=== PATIENT | female | born 1940 | race Caucasian/White ===

== ENCOUNTER 2017-02-13 11:10 | Inpatient (IN) | payer OTHER, BC ==
--- NOTE | 2017-02-13 12:46 | CPEKG ---
Heart Rate: 99 RR Interval: 606 P-R Interval: 184 QRSD Interval: 78 QT Interval: 356 QTC Interval: 457 P [place]: 55 QRS [place]: -1 T Wave [place]: 97 EKG Severity - ABNORMAL ECG - EKG Impression: SINUS RHYTHM EKG Impression: ABNORMAL T, CONSIDER ISCHEMIA, LATERAL LEADS Electronically Signed By: Isrrael Cruz 14-Feb-2017 13:16:57
[2017-02-13 13:10] LABS: % IMMATURE GRANULYOCYTES 0.4 % (0.0-1.1); ABSOLUTE IMMATURE GRANULOCYTES 0.04 10^3/uL (0.00-0.10); ADD DIFF? NO; ADD MORPH? NO; ADD SCAN? NO; ATYPICAL LYMPHOCYTE FLAG 0 (0-99); FRAGMENT RBC FLAG 0 (0-99); HEMATOCRIT 43.7 % (38.0-47.0); HEMOGLOBIN 14.6 g/dL (12.6-16.3); LEFT SHIFT FLG 0 (0-99); LIPEMIA HEMOLYSIS FLAG 80 (0-99); MEAN CELL HEMOGLOBIN 30.9 pg (27.9-34.1); MEAN CELL HEMOGLOBIN CONCENTR. 33.4 g/dL (32.4-36.7); MEAN CELL VOLUME 92.6 fL (81.5-99.8); MEAN PLATELET VOLUME 9.1 fL (8.7-11.7); PLATELET CLUMPS FLAG 0 (0-99); PLATELET COUNT 288 10^3/uL (150-400); RED BLOOD CELL COUNT 4.72 10^6/uL (4.18-5.33); RED CELL DISTRIBUTION WIDTH 13.7 % (11.5-15.2)
--- NOTE | 2017-02-13 13:19 | EDPHY ---
H & P Smoking Status: Never smoked Time Seen by Provider: 02/13/17 12:37 HPI/ROS: CHIEF COMPLAINT: Shortness of breath, chest pain HISTORY OF PRESENT ILLNESS: 77-year-old female presents to the emergency department with shortness of breath and chest pain. The patient has felt progressively more short of breath especially over last few days. She states in September 2016 she was diagnosed with RSV the and was hospitalized and was discharged home and use supplemental oxygen for several months. She was weaned off the oxygen about a month ago however she states that she continues to feel short of breath. She has noted especially dyspnea on exertion the last few days. She has had intermittent pain in her chest however none now. No fevers or chills. No upper respiratory symptoms. She denies a cough. Denies abdominal pain. She states that today she was developing headache. She is from [facility] and recently drove back from you [facility]. She states that she was feeling more short of breath while she has been here in [place]. She thinks it is related to the altitude. She does report a cramping sensation in her right calf however this is now resolved. No calf swelling. REVIEW OF SYSTEMS: Constitutional: No fever, no chills. Eyes: No double or blurry vision. ENT: No sore throat. Respiratory: Shortness of breath, no cough. Cardiac: chest pain. Gastrointestinal: No abdominal pain, vomiting or diarrhea. Genitourinary: No dysuria. Musculoskeletal: No neck or back pain. Skin: No rashes. Neurological: No headache. (Bettye Machado) Past Medical/Surgical History: Anxiety (Bettye Machado M) Social History: from [place] (Bettye Machado M) Physical Exam: General Appearance: Alert, no distress. 175/108, 36.6, 92% on room air. Eyes: Pupils equal and round. Extraocular motions are all intact. ENT: Mouth: Mucous membranes moist. Respiratory: No wheezing, rhonchi, or rales, lungs are clear to auscultation. Cardiovascular: Regular rate and rhythm. Gastrointestinal: Abdomen is soft and nontender, no masses, no rebound or guarding, bowel sounds normal. Neurological: Alert and oriented x 3, cranial nerves II through XII grossly intact Skin: Warm and dry, no rashes. Musculoskeletal: Nontender to palpate along the cervical, thoracic or lumbar spine. Neck is supple. Extremities: Full range of motion and no peripheral edema. Psychiatric: Patient is oriented X 3, there is no agitation. (Bettye Machado) Constitutional: Initial Vital Signs Temperature (C) 36.6 C 02/13/17 11:26 Heart Rate 106 H 02/13/17 11:26 Respiratory Rate 16 02/13/17 11:26 Blood Pressure 175/108 H 02/13/17 11:26 O2 Sat (%) 92 02/13/17 11:26 O2 Delivery Mode Nasal Cannula O2 (L/minute) 2 Allergies/Adverse Reactions: erythromycin base Allergy (Verified 02/13/17 11:29) Home Medications: Medication Instructions Recorded ALPRAZolam [Xanax 1 MG (*)] 1 mg PO HS PRN 02/13/17 DULoxetine [Cymbalta 60 MG (*)] 60 mg PO DAILY 02/13/17 Herbals/Supplements -Info Only 1 ea PO DAILY 02/13/17 Omeprazole 20 mg PO DAILY 02/13/17 traZODone [traZODONE 100MG (*)] 100 mg PO HS 02/13/17 Medical Decision Making - Diagnostics Imaging Results: Imaging Impressions Chest X-Ray 02/13/17 12:39 Impression: Probable COPD with linear opacities suggesting atelectasis/scarring. Chest/Thorax CTA 02/13/17 13:12 Impression: 1. Bilateral pulmonary emboli. 2. Prominent nonspecific superior mediastinal lymph nodes. If there is no outside study to document stability of these findings, recommend short-term follow-up CT in 3 months. 3. Scattered bilateral atelectasis. 4. Coronary artery atherosclerosis. 5. Additional findings as above. Findings discussed with Bettye Machado PA-C on 02/13/2017 at 1400 hours. ED Course/Re-evaluation: I discussed the case with Bettye Machado. I am in agreement that this patient has had significant respiratory infection for multiple months and just got off oxygen a month ago and came here to altitude. She is getting progressive shortness of breath. We are doing a chest CT scan to make sure she does not have a pulmonary embolus from her travels or any occult process from her 3 months of respiratory infection related to some sort of viral syndrome and hypoxemia. This patient has a positive pulmonary embolus. We will start appropriate anticoagulation at this time get her admitted the hospital. We have discussed anticoagulation choices and we will go with an oral factor Xa inhibitor at this time. (Calderon Canada) 77-year-old female presents to the emergency department with progressive shortness of breath and chest pain. Laboratory studies reveal normal white blood cell count. Her chemistries were otherwise unremarkable. Because the patient has chest pain as well as feeling progressively short of breath, I ordered CT pulmonary angiogram to rule out pulmonary embolism. CT pulmonary angiogram reveals moderate clot burden. Patient has elevated troponin of 0.0630 likely from pulmonary embolism. Case discussed with Dr. Calderon Canada, secondary supervising physician, who recommended starting the patient on Xarelto. The patient will be admitted to the hospitalist, Dr. Emerald Giang, to telemetry floor. (Bettye Machado) Differential Diagnosis: Shortness of breath including but not limited to pulmonary infectious process, COPD, asthma, pulmonary embolus and congestive heart failure. (Bettye Machado) - Data Points Laboratory Results: Laboratory Results 02/13/17 12:52 02/13/17 12:52 02/13/17 02/13/17 02/13/17 12:52 12:52 12:52 WBC 9.36 10^3/uL 10^3/uL (3.80-9.50) RBC 4.72 10^6/uL 10^6/uL (4.18-5.33) Hgb 14.6 g/dL g/dL (12.6-16.3) POC Hgb Hct 43.7 % % (38.0-47.0) POC Hct MCV 92.6 fL fL (81.5-99.8) MCH 30.9 pg pg (27.9-34.1) MCHC 33.4 g/dL g/dL (32.4-36.7) RDW 13.7 % % (11.5-15.2) Plt Count 288 10^3/uL 10^3/uL (150-400) MPV 9.1 fL fL (8.7-11.7) Neut % (Auto) 67.1 % % (39.3-74.2) Lymph % (Auto) 20.8 % % (15.0-45.0) [place] % (Auto) 10.3 % % (4.5-13.0) Eos % (Auto) 1.2 % % (0.6-7.6) Baso % (Auto) 0.2 % L % (0.3-1.7) Nucleat RBC Rel Count 0.0 % % (0.0-0.2) Absolute Neuts (auto) 6.28 10^3/uL 10^3/uL (1.70-6.50) Absolute Lymphs (auto) 1.95 10^3/uL 10^3/uL (1.00-3.00) Absolute Monos (auto) 0.96 10^3/uL H 10^3/uL (0.30-0.80) Absolute Eos (auto) 0.11 10^3/uL 10^3/uL (0.03-0.40) Absolute Basos (auto) 0.02 10^3/uL 10^3/uL (0.02-0.10) Absolute Nucleated RBC 0.00 10^3/uL 10^3/uL (0-0.01) Immature Gran % 0.4 % % (0.0-1.1) Immature Gran # 0.04 10^3/uL 10^3/uL (0.00-0.10) PT 13.3 SEC SEC (12.0-15.0) INR 1.02 (0.83-1.16) APTT 27.8 SEC SEC (23.0-38.0) Fibrinogen 579 mg/dL H mg/dL (214-456) D-Dimer 3.13 ug/mLFEU H ug/mLFEU (0.00-0.50) POC Sodium Sodium 137 mEq/L mEq/L (134-144) POC Potassium Potassium 4.3 mEq/L mEq/L (3.5-5.2) POC Chloride Chloride 105 mEq/L mEq/L (97-110) Carbon Dioxide 22 mEq/l mEq/l (22-31) Anion Gap 10 mEq/L mEq/L (8-16) POC BUN BUN 14 mg/dL mg/dL (7-23) Creatinine 0.7 mg/dL mg/dL (0.6-1.0) POC Creatinine Estimated GFR > 60 Glucose 104 mg/dL H mg/dL (70-100) POC Glucose Calcium 9.6 mg/dL mg/dL (8.5-10.4) Troponin I 0.063 ng/mL H ng/mL (0-0.034) 02/13/17 12:50 WBC RBC Hgb POC Hgb 16.0 gm/dL gm/dL (12.6-16.3) Hct POC Hct 47 % % (38-47) MCV MCH MCHC RDW Plt Count MPV Neut % (Auto) Lymph % (Auto) [place] % (Auto) Eos % (Auto) Baso % (Auto) Nucleat RBC Rel Count Absolute Neuts (auto) Absolute Lymphs (auto) Absolute Monos (auto) Absolute Eos (auto) Absolute Basos (auto) Absolute Nucleated RBC Immature Gran % Immature Gran # PT INR APTT Fibrinogen D-Dimer POC Sodium 141 mEq/L mEq/L (134-144) Sodium POC Potassium 4.0 mEq/L mEq/L (3.3-5.0) Potassium POC Chloride 102 mEq/L mEq/L (97-110) Chloride Carbon Dioxide Anion Gap POC BUN 14 mg/dL mg/dL (7-23) BUN Creatinine POC Creatinine 0.8 mg/dL mg/dL (0.6-1.0) Estimated GFR Glucose POC Glucose 110 mg/dL H mg/dL (70-100) Calcium Troponin I Medications Given: Discontinued Medications Rivaroxaban (Xarelto) 15 mg PO EDNOW ONE Stop: 02/13/17 14:04 Last Admin: 02/13/17 14:37 Dose: 15 mg Point of Care Test Results: 02/13/17 12:50 POC Sodium 141 POC Potassium 4.0 POC Chloride 102 POC BUN 14 POC Creatinine 0.8 POC Glucose 110 H Departure - Departure Disposition: [facility] Inpatient Acute Clinical Impression: Pulmonary embolism Qualifiers: Pulmonary embolism type: other Chronicity: acute Acute cor pulmonale presence: without acute cor pulmonale Qualified Code(s): I26.99 - Other pulmonary embolism without acute cor pulmonale Chest pain Qualifiers: Chest pain type: unspecified Qualified Code(s): R07.9 - Chest pain, unspecified Condition: Good
[2017-02-13] MEDS ORDERED: IOPAMIDOL (ISOVUE 370) 100 ML BTL IV ONE (13:26)
[2017-02-13 13:34] LABS: ANION GAP 10 mEq/L (8-16); CALCIUM 9.6 mg/dL (8.5-10.4); CARBON DIOXIDE 22 mEq/l (22-31); CHLORIDE 105 mEq/L (97-110); CREATININE 0.7 mg/dL (0.6-1.0); GLOMERULAR FILTRATION RATE > 60; GLUCOSE 104 mg/dL (70-100); POTASSIUM 4.3 mEq/L (3.5-5.2); SODIUM 137 mEq/L (134-144)
[2017-02-13 13:44] LABS: TROPONIN I 0.063 ng/mL (0-0.034)
[2017-02-13] MEDS ORDERED: RIVAROXABAN 15 MG TAB PO ONE (14:03)
[2017-02-13 14:41] LABS: INR 1.02 (0.83-1.16); PROTIME(PATIENT) 13.3 SEC (12.0-15.0)
[2017-02-13 14:42] LABS: APTT 27.8 SEC (23.0-38.0)
[2017-02-13] MEDS ORDERED: ACETAMINOPHEN 325 MG TAB PO PRN (15:17)
[2017-02-13] MEDS ORDERED: ONDANSETRON 4 MG/2 ML VIAL IVP PRN (15:17)
--- NOTE | 2017-02-13 16:08 | GHP ---
[f rep st] HISTORY AND PHYSICAL DATE OF ADMISSION: 02/13/2017 CHIEF COMPLAINT: Shortness of breath. HISTORY: The patient is a 77-year-old female who was diagnosed with RSV bronchitis in October. Chantelle benton never fully recovered, however, and has been persistently short of breath since that time. 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 After arriv ing to [place], her shortness of breath worsened which she attributed to altitude. She went home [facility] for a week and after a couple days, shortness of breath did improve somewhat, at which point she has re-attempted to come back to [place], re-arriving 4 days ago. The shortness of breath has continued to worsen. Has gotten quite severe for the last couple of day s. She denies any cough. There has been no fever. She has developed a new mid chest pain for the last couple of days. This is nonpleuritic and very exertional. She gets the chest pain consistentl y with ambulation and it improves with rest. Since her illness has started, she has also noticed poor balance. She says she walks like she is dr edwards. Worsening hand writing abilities. PAST MEDICAL HISTORY: Negative. PAST SURGICAL HISTORY: 1. Appendectomy with peritonitis as a teenager. 2. Hysterectomy. MEDICATIONS: Please see computer record for full detailed list. ALLERGIES: Erythromycin. SOCIAL HISTORY: No smoking. No alcohol. She lives in [place]. She is planning on staying in [facility] until May. 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 Living in a camper with her . REVIEW OF SYSTEMS: Complete review of systems obtained. Review of systems is negative regarding co nstitutional, HEENT, GI, pulmonary, cardiovascular, , hematology, skin, musculoskeletal, endocrine , psych, except for positives as listed as in HPI. FAMILY HISTORY: Reviewed, noncontributory to current complaint. PHYSICAL EXAMINATION: GENERAL: Well-developed, well-nourished female, in no distress. VITAL SIGNS : Temperature 36.6, pulse 95, blood pressure 147/100, saturating 92% on room air. HEENT: Eyes: N ormal conjunctivae. Pupils react to light. ENT: Normal ears, nose. Hearing intact. Normal teeth . Oropharynx moist. NECK: Trachea midline. No thyromegaly. CHEST: Normal respiratory effort. Cl ear to auscultation bilaterally. CARDIOVASCULAR: Regular rhythm. No murmur. No lower extremity ed jayme. ABDOMEN: Soft, nontender. No hepatosplenomegaly. SKIN: Warm, dry, intact. No rash. MUSCU LOSKELETAL: No cyanosis or clubbing. Strength 5/5 upper and lower extremities. NEUROLOGIC: Crani al nerves intact. Normal sensation to light touch. PSYCH: Alert and oriented x3. Normal affect. Normal judgment. Normal memory. LABORATORY DATA: White count 9.36, hematocrit 43.7, hematocrit 288. Sodium 137, potassium 4.3, chl oride 105, bicarb 22, BUN 14, creatinine 0.7, glucose 104, troponin 0.065. DIAGNOSTIC DATA: Chest x-ray is negative for anything acute. EKG viewed by me. My personal interpretation is normal sinus rhythm, mild ST depression, V5, V6. CT angiogram of the chest shows bilateral pulmonary emboli, mediastinal lymphadenopathy for which 3- month followup is recommended. Positive coronary artery disease by CAT scan. This case was discuss ed with Bettye Machado, emergency room provider. She has staffed the case with Dr. Canada who recom mended starting Xarelto, which has been initiated in the emergency room. ASSESSMENT/PLAN: 1. Moderate bilateral pulmonary embolus. She has been short of breath for months, exacerbated by h er recent living at altitude. Xarelto has been started in the emergency room which I will continue. 2. Troponin elevation. I suspect this is strain due to her pulmonary embolism. We will check an e chocardiogram. She also has a concerning exertional nonpleuritic chest pain history and evidence of coronary artery disease on her CAT scan, so probably should have some risk stratification for coron thom disease at some point as well. Stress testing could be done either as an outpatient versus prio r to discharge, depending on clinical course. 3. Hypertension. She reports borderline blood pressures as an outpatient in the past. They are qu ite elevated here. This will be followed. 4. Mediastinal lymphadenopathy. She needs a followup CT scan in 3 months. ADMISSION STATUS: I will admit to inpatient. She does present with significant pulmonary embolus w ith unsteady gait as well as a borderline living situation. [place], which may warrant a longer period of inpatient observation. CODE STATUS: Full. /[id number]/MODL
[2017-02-13] MEDS: ALPRAZolam 1 MG TAB PO PRN (20:29)
[2017-02-13] MEDS: traZODone 100 MG TAB PO SCH (20:29)
[2017-02-13] MEDS: RIVAROXABAN 15 MG TAB PO SCH (20:30)
[2017-02-14 06:10] LABS: CHOLESTEROL 185 mg/dL (140-220); CHOLESTEROL/HDL RATIO 3.49 RATIO (1.00-4.44); HIGH DENSITY LIPOPROTEIN 53 mg/dL (40-85); LDL/HDL RATIO 2.23 RATIO (1.00-3.22); LOW DENSITY LIPOPROTEIN 118 mg/dL (80-100); NON-HIGH DENSITY LIPOPROTEIN 132 mg/dL (90-129); TRIGLYCERIDE 73 mg/dL (35-135); VERY LOW DENSITY LIPOPROTEINS 14 mg/dL (8-25)
[2017-02-14] MEDS: PANTOPRAZOLE SODIUM 40 MG TAB PO SCH (08:40)
[2017-02-14] MEDS: DULoxetine 60 MG CAP PO SCH (08:40)
[2017-02-14] MEDS: RIVAROXABAN 15 MG TAB PO SCH ×2 (08:41→17:59)
[2017-02-14] MEDS ORDERED: NON-FORMULARY NEW DRUG (Omeprazole [Omeprazole] 20 MG) PO SCH (09:00)
--- NOTE | 2017-02-14 09:42 | CPEKG ---
Heart Rate: 94 RR Interval: 638 P-R Interval: 192 QRSD Interval: 78 QT Interval: 372 QTC Interval: 466 P [place]: 60 QRS [place]: 14 T Wave [place]: 93 EKG Severity - NORMAL ECG - EKG Impression: SINUS RHYTHM Electronically Signed By: Orlin Silva 14-Feb-2017 15:42:46
--- NOTE | 2017-02-14 10:17 | ECHO ---
[id number] + + [address] : : [place] [address] : : [phone] + Adult Echocardiographic Report + -----+ :Name: BRAEDEN Annette Date: 02/14/2017 07:52 AM : : Hospital Admission Number: [id number] Location : 213: :: 1940 Gender: Female Height: 63 in : :Age: 77 yrs Race: WH Weight: 155 lb : :Reason For Study: Bilateral PEs : : BSA: 1.7 meters2 : + -----+ MMode/2D Measurements \T\ Calculations IVSd: 1.5 cm LVIDd: 3.0 cm FS: 31.3 % Ao root diam: LVPWd: 1.1 cm LVIDs: 2.1 cm EDV(Teich): 3.3 cm 36.0 ml LA dimension: ESV(Teich): 2.6 cm 14.1 ml EF(Teich): 60.7 % LVLd ap4: 7.9 cm SV(MOD-sp4): EDV(MOD-sp4): 41.0 ml 55.0 ml LVLs ap4: 5.9 cm ESV(MOD-sp4): 14.0 ml EF(MOD-sp4): 74.5 % Normal Measurement Values: + + :LVIDd (3.5-5.7cm) IVSd (0.6-1.1cm) LVPWd (0.6-1.1cm) Aortic Root (2.0-3.7cm)Left Atrium (1.5-4.0cm): :LV Vol(d) (76-115ml) LV Vol(s) (29-48ml) Ejec Fraction (50-65%)PV Fab (0.6- 1.2m/s) TV Fab (0.4-1.0m/s) : :MV E Fab (0.8-1.0m/s)MV A Fab (0.3-1.0m/s)LVOT Fab (0.7-1.2m/s) Asc Ao Fab ( 0.9-1.8m/s) : + + Doppler Measurements \T\ Calculations Ao V2 max: 149.9 cm/sec TR max fab: 351.8 cm/sec Ao max P.0 mmHg TR max P.5 mmHg RAP systole: 10.0 mmHg RVSP(TR): 59.5 mmHg Left Ventricle The left ventricle is normal in size. There is moderate asymmetric left ventricular hypertrophy. Consider hypertrophic cardiomyopathy. The left ventricle is hyperdynamic. Ejection Fraction = 70-75%. No regional wall motion abnormalities noted. Right Ventricle The right ventricle is borderline dilated. The right ventricular systolic function is mildly reduced. Atria The left atrial size is normal. Right atrial size is normal. Mitral Valve The mitral valve is normal in structure and function. There is no evidence of mitral valve prolapse. There is no mitral valve stenosis. Tricuspid Valve Normal tricuspid valve. There is moderate tricuspid regurgitation. Right ventricular systolic pressure is 60mmHg. There is Doppler evidence for moderate pulmonary hypertension. Aortic Valve The aortic valve is trileaflet. The aortic valve opens well. Moderate calcification of the NCC of the aortic valve. There is no aortic stenosis. There is no aortic insufficiency. Pulmonic Valve The pulmonic valve is normal in structure and function. There is no pulmonic valvular regurgitation. Great Vessels The aortic root is normal size. Pericardium/Pleural Trivial anterior pericardial effusion vs. fat pad. Conclusion A complete two-dimensional transthoracic echocardiogram was performed (2D, M-mode, Doppler and color flow Doppler). There is moderate asymmetric left ventricular hypertrophy. Consider hypertrophic cardiomyopathy The left ventricle is hyperdynamic. Ejection Fraction = 70-75%. No regional wall motion abnormalities RV is borderline dilated with mildly reduced systolic function There is moderate tricuspid regurgitation. There is Doppler evidence for moderate pulmonary hypertension. Right ventricular systolic pressure is 60mmHg. Moderate calcification of the NCC of the aortic valve. No Trivial anterior pericardial effusion vs. fat pad. No prior echo Final Reading Physician: Dr Melba Jay electronically signed on 02/14/2017 10:16 AM Ordering Physician: Emerald Giang Performed By: Pamella Hager, [facility]
[2017-02-14 13:35] LABS: PROTEIN C ACTIVITY 94 % (70 - 150)
[2017-02-14 14:20] LABS: PROTEIN S ACTIVITY 105 % (65 - 160)
--- NOTE | 2017-02-14 14:40 | CPEKG ---
Heart Rate: 94 RR Interval: 638 P-R Interval: 192 QRSD Interval: 82 QT Interval: 372 QTC Interval: 466 P [place]: 46 QRS [place]: 2 T Wave [place]: 88 EKG Severity - NORMAL ECG - EKG Impression: SINUS RHYTHM Electronically Signed By: Orlin Silva 14-Feb-2017 15:42:37
--- NOTE | 2017-02-14 15:15 | HOSPPROG ---
Hospitalist Progress Note Assessment/Plan: 77 yo F with no significant overnight events presenting with sob and hypoxia dx with bilateral PE # acute bilateral PE: moderate volume on personal review of CTA, started on xarelto and will continue for now. Does have evidence of right heart strain on echo and hypoxia and intermediate risk PESI score. Will get dopplers of lower extremities and continue to monitor. # elevated trop: with e/o right heart strain as above, ecg personally reviewed with SR and rate of 90s, and no clear e/o ischemia. Echo without wall motion abnormality. Will need ischemic eval, for now will continue to trend trops and if becomes truly positive will consult cardiology. If remains indeterminate will likely get stress test in am # CP: as above, there is e/o CAD on CT # acute hypoxic respiratory failure: was 77% on RA on admission, continues to require supplemental oxygen # moderate pulm htn: likely acute related to acute bilateral PE # mediastinal LAD: will need f/u CT in 3 months # dispo: IP status, will need > 48 hours stay for eval/mgmt of above > 35 minutes spent in care of this patient, more than half in face to face counseling of patient and her regarding dx and tx plan Subjective: no significant overnight events, she is feeling better, not sob at rest, still with some chest pain unchanged from prior Objective: Vital Signs Temp Pulse Resp BP Pulse Ox 36.6 C 93 23 H 121/78 H 93 02/14/17 11:07 02/14/17 11:07 02/14/17 11:07 02/14/17 11:07 02/14/17 11:07 02/13/17 02/14/17 02/15/17 05:59 05:59 05:59 Intake Total 300 Balance 300 PT 13.3 SEC (12.0-15.0) 02/13/17 12:52 INR 1.02 (0.83-1.16) 02/13/17 12:52 awake alert anicteric op clear rrr distant cta b normal wob soft nt nd no cce warm dry well perfused oriented appropriate ICD10 Worksheet Patient Problems: Problems Problem Status Onset Chest pain Acute Pulmonary embolism Acute
[2017-02-14] MEDS: traZODone 100 MG TAB PO SCH (20:34)
[2017-02-14] MEDS: ALPRAZolam 1 MG TAB PO PRN (20:45)
[2017-02-15 04:40] LABS: % IMMATURE GRANULYOCYTES 0.3 % (0.0-1.1); ABSOLUTE IMMATURE GRANULOCYTES 0.02 10^3/uL (0.00-0.10); ADD DIFF? NO; ADD MORPH? NO; ADD SCAN? NO; ATYPICAL LYMPHOCYTE FLAG 0 (0-99); FRAGMENT RBC FLAG 0 (0-99); HEMATOCRIT 36.3 % (38.0-47.0); HEMOGLOBIN 11.8 g/dL (12.6-16.3); LEFT SHIFT FLG 0 (0-99); LIPEMIA HEMOLYSIS FLAG 80 (0-99); MEAN CELL HEMOGLOBIN 30.5 pg (27.9-34.1); MEAN CELL HEMOGLOBIN CONCENTR. 32.5 g/dL (32.4-36.7); MEAN CELL VOLUME 93.8 fL (81.5-99.8); MEAN PLATELET VOLUME 9.5 fL (8.7-11.7); PLATELET CLUMPS FLAG 30 (0-99); PLATELET COUNT 232 10^3/uL (150-400); RED BLOOD CELL COUNT 3.87 10^6/uL (4.18-5.33); RED CELL DISTRIBUTION WIDTH 13.5 % (11.5-15.2)
[2017-02-15 05:08] LABS: ANION GAP 7 mEq/L (8-16); CARBON DIOXIDE 25 mEq/l (22-31); CHLORIDE 104 mEq/L (97-110); CREATININE 0.7 mg/dL (0.6-1.0); GLOMERULAR FILTRATION RATE > 60; GLUCOSE 97 mg/dL (70-100); POTASSIUM 3.9 mEq/L (3.5-5.2); SODIUM 136 mEq/L (134-144)
[2017-02-15] MEDS: PANTOPRAZOLE SODIUM 40 MG TAB PO SCH (08:55)
[2017-02-15] MEDS: DULoxetine 60 MG CAP PO SCH (08:55)
[2017-02-15] MEDS: RIVAROXABAN 15 MG TAB PO SCH ×2 (08:55→18:21)
[2017-02-15] MEDS ORDERED: ALBUTEROL 3 ML DEYVIAL IH PRN (11:26)
[2017-02-15] MEDS ORDERED: IPRATROPIUM/ALBUTEROL 3 ML DEYVIAL IH PRN (11:26)
[2017-02-15 15:38] LABS: INTERPRETATION See Comments
--- NOTE | 2017-02-15 16:52 | HOSPPROG ---
Hospitalist Progress Note Assessment/Plan: 77 yo F with no significant overnight events presenting with sob and hypoxia dx with bilateral PE # acute bilateral PE: moderate volume on personal review of CTA, started on xarelto. Does have evidence of right heart strain on echo and hypoxia and intermediate risk PESI score. No DVT, pain controlled. # acute hypoxic respiratory failure: was 77% on RA on admission and continues to require 3L to maintain o2 sats in 90s. Repeat cxr showing some atelectasis and has had some intermittent wheeze as well. Continue xarelto, nebs and IS/ ambulation. Suspect she will need to dc with supplemental o2. # elevated trop: with e/o right heart strain as above, ecg personally reviewed with SR and rate of 90s, and no clear e/o ischemia. Echo without wall motion abnormality. Will plan for stress test tomorrow for further evaluation # acute encephalopathy: suspect there is some underlying dementia given cognitive deficits noted in discussion with the patient that is at baseline, however today patient is also more somnolent and intermittently more confused. No focal neuro findings and suspect mild hypoactive delerium. Will continue to monitor. # CP: now resolved and related to acute PE, there is e/o CAD on CT # moderate pulm htn: likely acute related to acute bilateral PE, no lower extremity edema # mediastinal LAD: will need f/u CT in 3 months # dispo: IP status, will need > 48 hours stay for eval/mgmt of above Subjective: no significant overnight events, today patient is more somnolent and intermittently confused, denies ongoing pain, still sob with exertion Objective: Vital Signs Temp Pulse Resp BP Pulse Ox 37.2 C 91 16 137/78 H 91 L 02/15/17 16:00 02/15/17 16:00 02/15/17 16:00 02/15/17 16:00 02/15/17 16:00 Laboratory Results 02/15/17 03:59 02/15/17 03:59 02/14/17 02/15/17 02/16/17 05:59 05:59 05:59 Intake Total 300 750 Balance 300 750 PT 13.3 SEC (12.0-15.0) 02/13/17 12:52 INR 1.02 (0.83-1.16) 02/13/17 12:52 awake alert anicteric op clear rrr distant cta b normal wob soft nt nd no cce warm dry well perfused oriented appropriate - Time Spent With Patient Time Spent with Patient: greater than 35 minutes Time Spent with Patient: Greater than 35 minutes spent on this patients care, greater than 50% of time spent counseling, educating, and coordinating care regarding the above mentioned plan. ICD10 Worksheet Patient Problems: Problems Problem Status Onset Chest pain Acute Pulmonary embolism Acute
[2017-02-15] MEDS: ALPRAZolam 1 MG TAB PO PRN (20:39)
[2017-02-15] MEDS: traZODone 100 MG TAB PO SCH (20:39)
[2017-02-16 04:41] LABS: % IMMATURE GRANULYOCYTES 0.2 % (0.0-1.1); ABSOLUTE IMMATURE GRANULOCYTES 0.01 10^3/uL (0.00-0.10); ADD DIFF? NO; ADD MORPH? NO; ADD SCAN? NO; ATYPICAL LYMPHOCYTE FLAG 20 (0-99); FRAGMENT RBC FLAG 0 (0-99); HEMATOCRIT 38.2 % (38.0-47.0); HEMOGLOBIN 12.5 g/dL (12.6-16.3); LEFT SHIFT FLG 0 (0-99); LIPEMIA HEMOLYSIS FLAG 80 (0-99); MEAN CELL HEMOGLOBIN 30.8 pg (27.9-34.1); MEAN CELL HEMOGLOBIN CONCENTR. 32.7 g/dL (32.4-36.7); MEAN CELL VOLUME 94.1 fL (81.5-99.8); MEAN PLATELET VOLUME 9.8 fL (8.7-11.7); PLATELET CLUMPS FLAG 20 (0-99); PLATELET COUNT 261 10^3/uL (150-400); RED BLOOD CELL COUNT 4.06 10^6/uL (4.18-5.33); RED CELL DISTRIBUTION WIDTH 13.2 % (11.5-15.2)
[2017-02-16 04:58] LABS: ANION GAP 10 mEq/L (8-16); CALCIUM 9.5 mg/dL (8.5-10.4); CARBON DIOXIDE 24 mEq/l (22-31); CHLORIDE 104 mEq/L (97-110); CREATININE 0.7 mg/dL (0.6-1.0); GLOMERULAR FILTRATION RATE > 60; GLUCOSE 86 mg/dL (70-100); POTASSIUM 4.5 mEq/L (3.5-5.2); SODIUM 138 mEq/L (134-144)
[2017-02-16] MEDS: RIVAROXABAN 15 MG TAB PO SCH ×2 (08:50→18:17)
[2017-02-16] MEDS: PANTOPRAZOLE SODIUM 40 MG TAB PO SCH (08:50)
[2017-02-16] MEDS: DULoxetine 60 MG CAP PO SCH (08:50)
[2017-02-16] MEDS ORDERED: REGADENOSON 0.4 MG/5 ML SYR IVP ONE (10:06)
--- NOTE | 2017-02-16 12:18 | CPR ---
[f rep st] NONINVASIVE CARDIAC PROCEDURE REPORT PROCEDURE: Lexiscan injection of Lexiscan MPI stress testing. INDICATION FOR PROCEDURE: Chest pressure. PRE: After obtaining informed consent, ensuring patient's n.p.o. status of caffeine for greater kacie n 12 hours, patient placed on electrocardiogram. Initial EKG shows sinus rhythm, normal axis, no si gnificant ST or T-wave abnormalities noted. The patient denies any chest pain, shortness of breath, or symptoms suggesting angina. Initial blood pressure 128/72, saturation 95%. INJECTION: Patient was given Lexiscan slow IV push followed by nuclear isotope. Patient reported s ome mild shortness of breath within 1 minute of injection, no significant EKG changes. Within 5 min utes, all symptoms have resolved. Vital signs remain stable, no significant EKG changes. IMPRESSION: 77-year-old female, with reported history of fatigue, weakness, and chest pressure unde rgoing Lexiscan MPI study, evaluate for possible cardiac ischemia. No significant EKG changes with Lexiscan injection. Vital signs remained stable. Patient currently asymptomatic of any symptoms holman ggesting angina. Patient will finish post stress MPI imaging in Nuclear Medicine at this time. /[id number]/MODL
--- NOTE | 2017-02-16 16:29 | HOSPPROG ---
Hospitalist Progress Note Assessment/Plan: * Acute PE - Xarelto * Acute respiratory failure - O2 * Right heart strain due to PE * Borderline troponins due to RH strain * CP with exertion -stress test negative * Metabolic encephalopathy - improved * Mediastinal LAD - f/w CT 3 months Difficult dispo with home O2 and HH [place] Plan for possible dispo in am Subjective: No complaints. Objective: Vital Signs Temp Pulse Resp BP Pulse Ox 36.8 C 96 20 118/67 88 L 02/16/17 12:19 02/16/17 12:19 02/16/17 12:19 02/16/17 12:54 02/16/17 14:10 Laboratory Results 02/16/17 03:09 02/16/17 03:09 02/15/17 02/16/17 02/17/17 05:59 05:59 05:59 Intake Total 750 970 Balance 750 970 PT 13.3 SEC (12.0-15.0) 02/13/17 12:52 INR 1.02 (0.83-1.16) 02/13/17 12:52 Nuclear stress test - no reversible ischemia EKG viewed, my personal interpretation is - NSR, no ischemic changes - Physical Exam Constitutional: no apparent distress, appears nourished, not in pain Cardiovascular: regular rate and rhythym, no murmur, rub, or gallop Respiratory: no respiratory distress, no rales or rhonchi, clear to auscultation Gastrointestinal: normoactive bowel sounds, soft, non-tender abdomen, no palpable masses Skin: no rashes or abrasions, no fluctuance, no induration Neurologic: AAOx3, sensation intact bilaterally Psychiatric: interacting appropriately, not anxious, not encephalopathic, thought process linear ICD10 Worksheet Patient Problems: Problems Problem Status Onset Chest pain Acute Pulmonary embolism Acute
[2017-02-16] MEDS: ALPRAZolam 1 MG TAB PO PRN (20:27)
[2017-02-16] MEDS: traZODone 100 MG TAB PO SCH (20:27)
[2017-02-17 08:35] VITALS: TEMP 97.8
[2017-02-17] MEDS: RIVAROXABAN 15 MG TAB PO SCH (08:56)
[2017-02-17] MEDS: PANTOPRAZOLE SODIUM 40 MG TAB PO SCH (08:56)
[2017-02-17] MEDS: DULoxetine 60 MG CAP PO SCH (08:56)
--- NOTE | 2017-02-17 09:58 | PDIAF ---
- Diagnosis Diagnosis: PE Code Status: Full Code - Medication Management Discharge Medications: Medications to Continue on Transfer ALPRAZolam [Xanax 1 MG (*)] 1 mg PO HS PRN 02/13/17 [Last Taken 02/12/17] DULoxetine [Cymbalta 60 MG (*)] 60 mg PO DAILY 02/13/17 [Last Taken 02/13/17] Herbals/Supplements -Info Only 1 ea PO DAILY 02/13/17 [Last Taken Unknown] Omeprazole 20 mg PO DAILY 02/13/17 [Last Taken 02/13/17] traZODone [traZODONE 100MG (*)] 100 mg PO HS 02/13/17 [Last Taken 02/12/17] Rivaroxaban [Xarelto 15mg (*)] 15 mg PO BIDMEAL #42 tab 02/17/17 [Last Taken Unknown] Discharge Medications: Refer to the Discharge Home Medication list for PRN reason. - Orders Services needed: Home Care, Registered Nurse, Physical Therapy, Occupational Therapy Home Care Face to Face: I certify that this patient was under my care and that I had the required [id number] encounter meeting the encounter requirements on the discharge day. My findings support the fact that the patient is homebound as defined in CMS Chapter 7 Medicare Benefits Manual 30.1.1, The condition of the patient is such that there exists a normal inability to leave home and consequently, leaving home would require a considerable and taxing effort. Diet Recommendation: no restrictions on diet - Follow Up Care Current Providers and Referrals: NONE *PRIMARY CARE P,. [Primary Care Provider] -
[2017-02-17 12:14] VITALS: BP 125/79; PULSE 72; RESP 18; O2SAT 95
--- NOTE | 2017-02-17 16:46 | GDS ---
[f rep st] DISCHARGE SUMMARY DISCHARGE DIAGNOSES: 1. Acute pulmonary embolus. 2. Acute respiratory failure. 3. Right heart strain due to pulmonary embolus. 4. Borderline troponins due to right heart strain. 5. Chest pain with exertion and negative stress testing. 6. Metabolic encephalopathy. 7. Mediastinal lymphadenopathy. Follow-up CT needed in 3 months. HISTORY: The patient is a 77-year-old female, who has been short of breath for a couple months but normally lives in [place], recently [place] a prolonged stay through the summer. Upon c oming to altitude, her shortness of breath got acutely worse. CT angiogram showed extensive bilater al pulmonary emboli. She had a borderline troponin elevation due to some right heart strain seen on echo. She also had a history of chest pain with exertion that was concerning for underlying ischem ia, especially since we saw coronary disease on her CT scan. Stress testing, however, was negative for anything reversible. I do suspect this is all PE. She did also have some associated metabolic encephalopathy that is improved. She does have ongoing oxygen requirement at the time of discharge and was discharged with home O2. She was started on Xarelto, which will continue at 15 mg p.o. twic e daily for 21 days and then can be reduced to 20 mg p.o. daily thereafter. Since she is planning a prolonged stay in the area, she was encouraged strongly to establish primary care locally for the p eriod of time she will be here as she will need close followup. DISCHARGE MEDICATIONS: Please see computerized record for full detailed list. New medication: Xarelto 15 mg p.o. twice daily for 3 weeks and then reduce to 20 mg p.o. daily. DISCHARGE INSTRUCTIONS: 1. Establish local primary care for close followup post hospitalization. She was referred to [facility] in [place], which is close to her camping site. 2. Home oxygen has been arranged. 3. Home health PT/OT and VNS. 4. Follow-up CT scan of the chest in 3 months for further evaluation of mediastinal lymphadenopathy . Greater than 30 minutes' time was spent arranging this discharge. Patient was seen and examined by me on the day of discharge. /[id number]/MODL
== END 2017-02-17 14:17 | disposition home health service (06) | DRG 175 ==
LOC: F2W 16:59
PROVIDERS: ADMIT Internal Medicine; ATTEND Internal Medicine
DX: I26.99 Other pulmonary embolism without acute cor pulmonale (principal); J96.01 Acute respiratory failure with hypoxia; I27.2 Other secondary pulmonary hypertension; G93.40 Encephalopathy, unspecified; R59.0 Localized enlarged lymph nodes
CPT/HCPCS: 82947-QW; 85300-90; 85303-90; 85306-90; 86147-90; 97116-GP; 97161-GP; 97165-GO; 97535-GO; A9500; G8978-GP-CI; G8979-GP-CI; G8980-GP-CI; G8987-GO-CI; G8988-GO-CI; G8989-GO-CI; J2405; J2785; Q9967